=== PATIENT | male | born 1985 | race Two or more races ===

== ENCOUNTER 2019-01-23 19:13 | Emergency (ER) | payer BC, OTHER ==
[~2019-01-23] VITALS: Ht 180.3 cm; Wt 95.3 kg
[2019-01-23 19:40] VITALS: BP 166/93
[2019-01-23] MEDS ORDERED: BACLOFEN 10 MG TAB PO ONE (22:15)
[2019-01-23] MEDS ORDERED: HYDROcodone-ACET 5/325MG TAB PO ONE (22:15)
[2019-01-23] MEDS ORDERED: ONDANSETRON ODT 4 MG TAB PO ONE (23:00)
[2019-01-24] MEDS ORDERED: ONDANSETRON ODT 4 MG TAB PO ONE (02:00)
== END 2019-01-24 02:43 | disposition home or self-care (01) ==
LOC: ER 19:13
DX: S32.009A Unspecified fracture of unspecified lumbar vertebra, initial encounter for closed fracture (principal); M62.838 Other muscle spasm; V43.12XA Car passenger injured in collision with other type car in nontraffic accident, initial encounter; Y93.89 Activity, other specified; Y99.8 Other external cause status; Y92.410 Unspecified street and highway as the place of occurrence of the external cause
CPT/HCPCS: 70450; 72125; 72131; 73030; 73070; 73501; 74176; 99284; Q0162

== ENCOUNTER 2021-12-09 17:18 | Emergency (ER) | payer BC ==
[~2021-12-09] VITALS: Ht 180.3 cm; Wt 97.1 kg
[2021-12-09 18:27] LABS: Basophils # (auto) 0.1 10 ^3/uL (0-0.2); Basophils % (auto) 0.8 % (0.0-2.0); Eosinophils # (auto) 0.1 10 ^3/uL (0-0.8); Hematocrit 43.8 % (41.0-53.0); Hemoglobin 15.5 g/dL (13.5-17.5); Lymphocytes # (auto) 2.9 10 ^3/uL (0.4-5.4); Lymphocytes % (auto) 24.6 % (10.0-50.0); Mean Corpuscular Hemoglobin 29.9 pg (28.0-32.0); Mean Corpuscular Hgb Conc. 35.4 g/dL (32.0-36.0); Mean Corpuscular Volume 84.4 fL (80.0-100.0); Monocytes # (auto) 0.5 10 ^3/uL (0-1.3); Neutrophils # (auto) 8.2 10 ^3/uL (1.6-8.6); Neutrophils % (auto) 69.6 % (37.0-80.0); Red Cell Distribution Width 13.6 % (11.8-14.3); White Blood Cell 11.8 10^3/uL (4.4-10.8)
[2021-12-09 18:55] LABS: Albumin 4.1 g/dL (3.4-5.0); Calcium 9.3 mg/dL (8.5-10.1); Magnesium 2.6 mg/dL (1.6-2.6); Potassium 3.8 mmol/L (3.5-5.1)
[2021-12-09 18:59] LABS: BUN/Creatinine Ratio 16.7; Bilirubin, Total 0.4 mg/dL (0.2-1.0); Total Protein 8.3 g/dL (6.4-8.2)
[2021-12-09 22:30] VITALS: BP 162/99
== END 2021-12-09 22:31 | disposition home or self-care (01) ==
LOC: ER 17:18
DX: R07.89 Other chest pain (principal)
CPT/HCPCS: 36415; 71046; 80053; 83735; 84484; 85025; 93005